=== PATIENT | female | born 1985 | race Caucasian/White ===

== ENCOUNTER 2018-09-18 17:21 | Emergency (ER) | payer MEDICAID ==
[~2018-09-18] VITALS: Ht 167.6 cm; Wt 83.1 kg
[~2018-09-18 17:21] MED LIST: FERR27TA PO; PREN1TAB49 PO
[2018-09-18 17:28] VITALS: Ht 167.6 cm; Wt 83.1 kg
[2018-09-18] MEDS ORDERED: ACET500C5 PO (21:57)
--- NOTE | 2018-09-18 22:07 | ERD ---
ER Documentation Chief Complaint Chief Complaint Complains of vag bleed and 2 months HPI 32-year-old female who is approximately 2 months is complaining of light vaginal spotting times 4 days. Patient states that she only notices the blood when wiping after bathroom. Patient also reports lower back pain. Patien t and states that they continue to engage sexual intercourse. Denies fever or chills. Denies dysuria. Denies pelvic pain. Patient is , LMP 07/11/2018. ROS All systems reviewed and are negative except as per history of present illness. Medications Home Meds Active Scripts Acetaminophen* (Tylophen*) 500 Mg Capsule, 1 CAP PO Q6H PRN for PAIN AND OR ELEVATED TEMP, #20 CAP Prov:IRLANDA RIZVI JACKER 09/18/18 Reported Medications Ferrous Sulfate (Iron) 1 Tab Tablet, 1 TAB PO 10/14/11 Vits W-Ca,Fe,Fa(<1MG) () 1 Tab Tablet, 1 TAB PO 10/14/11 Allergies Allergies: Coded Allergies: No Known Drug Allergy (Verified Allergy, Unknown, 05/24/09) PMhx/Soc History of Surgery: No Anesthesia Reaction: No Hx Neurological Disorder: No Hx Respiratory Disorders: No Hx Cardiac Disorders: No Hx Psychiatric Problems: No Hx Miscellaneous Medical Probl: No Hx Alcohol Use: No Hx Substance Use: No Hx Tobacco Use: No Smoking Status: Never smoker Physical Exam Vitals Vital Signs Date Temp Pulse Resp B/P (MAP) Pulse Ox O2 O2 Flow FiO2 Time Delivery Rate 09/18/18 100.1 84 20 132/75 97 17:28 (94) Physical Exam General: Well-developed, well-nourished, conscious and coherent, in no distress Skin: Warm and dry without rash, good texture and turgor Head: Normocephalic without evidence of trauma Chest: Normal AP diameter. Good expansion without retractions. Nontender. Lungs are clear to auscultate bilaterally with good tidal volume Heart: Regular rate and rhythm. No murmur, rub, or gallops heard Abdomen: Soft and nontender without masses, guarding, or rebound. Bowel sounds are active. No hepatosplenomegaly Back: Without spinal or CVA tenderness Pelvis: Nontender to palpation and stable to compression Extremities: Full range of motion. Good strength bilaterally. No erythema, ecchymosis, or edema. Peripheral pulses are intact. Sensation intact Neuro: Alert and oriented 4, GCS 15. Result Diagram: 09/18/182014 Results 24 hrs Laboratory Tests Test 09/18/18 20:15 09/18/18 20:19 09/18/18 20:20 White Blood Count 13.9 10^3/ul Red Blood Count 4.61 10^6/ul Hemoglobin 12.9 g/dl Hematocrit 40.3 % Mean Corpuscular Volume 87.4 fl Mean Corpuscular Hemoglobin 28.0 pg Mean Corpuscular 32.0 g/dl Hemoglobin Concent Red Cell Distribution Width 12.8 % Platelet Count 264 10^3/UL Mean Platelet Volume 10.7 fl Immature Granulocytes % 0.200 % Neutrophils % 49.0 % Lymphocytes % 32.8 % Monocytes % 5.1 % Eosinophils % 12.3 % Basophils % 0.6 % Nucleated Red Blood Cells % 0.0 /100WBC Immature Granulocytes # 0.030 10^3/ul Neutrophils # 6.8 10^3/ul Lymphocytes # 4.6 10^3/ul Monocytes # 0.7 10^3/ul Eosinophils # 1.7 10^3/ul Basophils # 0.1 10^3/ul Nucleated Red Blood Cells # 0.0 10^3/ul Beta HCG, Quantitative 01415.0 mIU/ml Bedside Urine pH (LAB) 6.0 Bedside Urine Protein (LAB) Negative Bedside Urine Glucose (UA) Negative Bedside Urine Ketones (LAB) Negative Bedside Urine Blood 2+ Bedside Urine Nitrite (LAB) Negative Bedside Urine Leukocyte Esterase 1+ (L POC Beta HCG, Qualitative POSITIVE PROCEDURE: US OB. CLINICAL INDICATION: Vaginal bleeding. TECHNIQUE: Transabdominal and transvaginal sonographic evaluation of the uterus was performed. COMPARISON: None. FINDINGS: There is a single living intrauterine gestation containing yolk sac and pole. Mean sac diameter measures 23.5 mm. [place] rump length measures 10.3 mm. Estimated gestational age based on this examination is 7 weeks and 1 day. Real time examination shows cardiac activity. heart rate is 148 beats per minute. Estimated date of confinement based on this examination is 05/06/2019. Right ovary measures 3.4 x 2.2 x 1.8 cm. There is a 2 cm right ovarian corpus luteal cyst. Left ovary was not visualized. There is no free pelvic fluid. IMPRESSION: 1. Single living intrauterine gestation with estimated gestational age of 7 weeks and 1 day. RPTAT:HAJM Physician [place] Date Time Electronically viewed and signed by Effie Scott Physician on 09/18/2018 21:17 RM/ CC: IRLANDA RIZVI JACKER Procedures/MDM ED course: CBC: No evidence of severe anemia or infection. Beta hC.0 UA: No evidence of urinary tract infection. Blood type: O+. RhoGAM is not indicated for patient. OB ultrasound: Single live intrauterine gestation with estimated gestational age of 7 weeks and 1 day, heart rate is 148 bpm. Medical decision-making: Well-appearing 32-year-old female present ED with slight vaginal spotting. Pat ient reports continued sexual intercourse, I suspect that that may be the cause of the spotting. A single live intrauterine gestation is noted on ultrasound, low suspicion for heterotopic . I have low suspicion for threatened , however cannot completely rule that out at this time. Patient advised to follow-up with her OB in 2 days for repeat beta hCG quant. Patient states that she does have a follow-up appointment with OB in 2 days for ultrasound. Spontaneous and ectopic instructions and return precautions provided. Medications on discharge: Tylenol. Follow-up: Primary care provider in 2 days or return to ED if worse. Departure Diagnosis: Primary Impression: Vaginal bleeding in patient at less than 20 weeks ges... Condition: Stable Patient Instructions: Bleeding During Early Referrals: [facility] [place] [address] [facility] [address] [place] [id number] OFFICE FAX CELINA KEYS [address] [place] [address] [address] [address] [address] BALTAZAR, HESHMAT [address] [facility], [address], [place] [address] DR CALDERON, [facility] [address] [facility], [place] [address] [facility] [address] [place] [address] [facility], [facility] [address] - DR GUAN, DYLAN [address], [place] [address] DR HERRERA, NANCY [address] [facility]. [address], [place] [address] DR DELGADO, FARID [address], [place] [id number] Additional Instructions: Llame al doctor MAANA y lynn paula CHARISMA PARA DENTRO DE 2-3 JORGE.Dgale a la secretaria que nosotros le instruimos hacer esta charisma.Avise o llame si vasquez condicin se empeora antes de la charisma. Regresa aqui si peor o no mejor. IRLANDA RIZVI NP Sep 18, 2018 22:07
[2018-09-18 22:10] VITALS: BP 121/70; PULSE 78; RESP 14
== END 2018-09-18 22:12 | disposition home or self-care (01) ==
LOC: FTE 17:21
DX: O20.9 Hemorrhage in early pregnancy, unspecified (principal); R40.2412 Glasgow coma scale score 13-15, at arrival to emergency department; Z3A.01 Less than 8 weeks gestation of pregnancy
CPT/HCPCS: 36415; 76801; 81003; 81025; 84702; 85025; 86900; 86901; Z7502

== ENCOUNTER 2019-01-31 06:37 | Emergency (ER) | payer MEDICAID ==
[~2019-01-31] VITALS: Ht 160 cm; Wt 83.7 kg
[~2019-01-31 06:37] MED LIST changes: +ACET500C5 PO
[2019-01-31 06:43] VITALS: BP 120/78; PULSE 121; RESP 18; Ht 160 cm; Wt 83.7 kg
[2019-01-31] MEDS ORDERED: AMOX500C2 PO (06:59)
--- NOTE | 2019-01-31 07:54 | ERD ---
ER Documentation Chief Complaint Chief Complaint fever,cold symptoms,sore throat X3 days,26 wks & 5 days HPI 33-year-old female presenting with sore throat and cold symptoms for 3 days. Patient has had tactile fevers but not taken temperature with a thermometer. Patient does not take medications. She is mild runny nose and sore throat and dry cough. No ear pain. Patient is approximately 25 weeks with no complication. Denies medical problems. NKDA. Surgical history denies. Up-to-date on vaccinations. Social history denies ROS All systems reviewed and are negative except as per history of present illness. Medications Home Meds Active Scripts Amoxicillin* (Amoxicillin*) 500 Mg Cap, 500 MG PO BID for 7 Days, CAP Prov:ANGELICA DOWD PA-C 01/31/19 Acetaminophen* (Tylophen*) 500 Mg Capsule, 1 CAP PO Q6H PRN for PAIN AND OR ELEVATED TEMP, #20 CAP Prov:IRLANDA RIZVI BIOMASS TECHNICIAN 09/18/18 Reported Medications Ferrous Sulfate (Iron) 1 Tab Tablet, 1 TAB PO 10/14/11 Vits W-Ca,Fe,Fa(<1MG) () 1 Tab Tablet, 1 TAB PO 10/14/11 Allergies Allergies: Coded Allergies: No Known Drug Allergy (Verified Allergy, Unknown, 05/24/09) PMhx/Soc History of Surgery: No Anesthesia Reaction: No Hx Neurological Disorder: No Hx Respiratory Disorders: No Hx Cardiac Disorders: No Hx Psychiatric Problems: No Hx Miscellaneous Medical Probl: No Hx Alcohol Use: No Hx Substance Use: No Hx Tobacco Use: No Smoking Status: Never smoker FmHx Family History: No diabetes, No coronary disease, No other Physical Exam Vitals Vital Signs Date Temp Pulse Resp B/P (MAP) Pulse Ox O2 O2 Flow FiO2 Time Delivery Rate 01/31/19 98.9 121 18 120/78 95 06:43 (92) Physical Exam GENERAL: The patient is well-appearing, well-nourished, in no acute distress HEENT: Atraumatic. Conjunctivae are pink. Pupils equal, round, and reactive to light. There is no scleral icterus. Tympanic membranes clear bilaterally. Oropharynx clear. NECK: C-spine is soft and supple. There is no meningismus. There is no cervical lymphadenopathy. CHEST: Clear to auscultation bilaterally. There are no rales, wheezes or rhonchi. HEART: Regular rate and rhythm. No murmurs, clicks, rubs or gallops. Procedures/MDM MDM: 33-year-old female presenting with cough. Patient symptoms are likely viral. Patient is discharged with antibiotics but recommended to repeat in 3-4 more days before taking antibiotics. Patient is only told to take antibiotics if symptoms persist. Patient is told symptoms change or worsen to return immediately to the ER. All questions answered at discharge Departure Diagnosis: Primary Impression: Upper respiratory infection Condition: Stable Patient Instructions: Uri, Viral, No Abx (Adult) Referrals: [facility], [facility]1983 CLINICS YOU HAVE RECEIVED A MEDICAL SCREENING EXAM AND THE RESULTS INDICATE THAT YOU DO NOT HAVE A CONDITION THAT REQUIRES URGENT TREATMENT IN THE EMERGENCY DEPARTMENT. FURTHER EVALUATION AND TREATMENT OF YOUR CONDITION CAN WAIT UNTIL YOU ARE SEEN IN YOUR DOCTORS OFFICE WITHIN THE NEXT 1-2 DAYS. IT IS YOUR RESPONSIBILITY TO MAKE AN APPOINTMENT FOR FOLOW-UP CARE. IF YOU HAVE A PRIMARY DOCTOR --you should call your primary doctor and schedule an appointment IF YOU DO NOT HAVE A PRIMARY DOCTOR YOU CAN CALL OUR PHYSICIAN REFERRAL HOTLINE AT IF YOU CAN NOT AFFORD TO SEE A PHYSICIAN YOU CAN CHOSE FROM THE FOLLOWING [facility] CLINICS [facility] [address] [facility]. [facility] [address] [facility] [address] [facility] [address] [facility]. [facility] [address] [facility]. [facility]. [address] Additional Instructions: FOLLOW UP WITH YOUR PRIMARY CARE PHYSICIAN TOMORROW.Return to this facility if you are not improving as expected. ANGELICA DOWD PA-C Jan 31, 2019 07:54
== END 2019-01-31 07:50 | disposition home or self-care (01) ==
LOC: FTE 06:37
DX: J06.9 Acute upper respiratory infection, unspecified (principal)

== ENCOUNTER 2019-01-31 08:04 | Outpatient (CLI) | payer MEDICAID ==
[~2019-01-31] VITALS: Ht 160 cm; Wt 83.8 kg
[~2019-01-31 08:04] MED LIST changes: +AMOX500C2 PO
[2019-01-31 08:19] VITALS: Ht 160 cm; Wt 83.8 kg
[2019-01-31 08:20] VITALS: BP 110/72; PULSE 111; RESP 18
--- NOTE | 2019-01-31 09:08 | TRIAGE ---
OB Triage Datetime Report Generated by CPN: 01/31/2019 09:08 Datetime: 01/31/2019 08:41 Stage of : OB Triage Maternal Assessment Level of Consciousness: Keenly Alert, Responsive Labor Evaluation Frequency: NONE Monitor Mode: External Resting Tone [place]: Relaxed Heart Rate FHR Baseline Rate: 145 Monitor Mode: External US Variability: Moderate 6-25 bpm Accelerations: 15X15 Decelerations: None Category: Category I Pain Assessment Pain Scale: 0 Pain Goal: 3 Vaginal Exam Membrane Status: Intact Vaginal Bleeding: None Datetime: 01/31/2019 08:15 Assessment Type: Triage Maternal Assessment Level of Consciousness: Keenly Alert, Responsive DTR's/Clonus: DTRs 2+; No Clonus Headache: Denies Blurred Vision: No Respiratory Effort: Unlabored; Regular Rhythm; Equal Expansion Breath Sounds, Left: Clear and Equal Breath Sounds, Right: Clear and Equal Nausea/Vomiting: Denies RUQ Epigastric Pain: Denies Lower Extremities Edema: None Degree: None Upper Extremities Edema: None Degree: None Facial Edema: None Fall Risk Assessment History of Falling: (0) No Secondary Diagnosis: (0) No Ambulatory Aid: (0) Bedrest/Nurse Assist IV Therapy: (0) No Gait: (0) Normal/Bedrest/Immobile Mental Status: (0) Oriented to Own Ability Fall Score: 0 Fall Risk Score Definition: No Risk: No action required Datetime: 01/31/2019 08:14 Time of Arrival: 01/31/2019 08:00 EGA: 27.0 Arrived By: Ambulatory Arrived From: Emergency Dept Chief Complaint: PT. SENT FROM ED TO BE CLEARED OB GREGORY, SEEN AND TREATED FOR C/O COLD. Movement: Present Contractions: Denies/Absent Rupture of Membranes: Denies Vaginal Bleeding: None Vaginal Discharge: Denies Recent Sexual Intercouse: Denies Abdominal Trauma: Not Applicable Patient Complaints: None Time Provider Notified: 01/31/2019 08:30 Provider Notified: HADADIAN Initial Plan: NST/MILTON Datetime: 01/31/2019 08:11 Monitor Mode: External Monitor Mode: External US
--- NOTE | 2019-01-31 09:44 | PN ---
Triage Information Date/Time Reason for visit: She presented to emergency department with cold symptoms, she was evaluated and then transferred to labor and delivery for well-being Weeks of Gestation 27 weeks /Para -1-0-5 Diabetes: none Hypertention: none Objective Vital Signs Date Temp Pulse Resp B/P (MAP) Pulse Ox O2 O2 Flow FiO2 Time Delivery Rate 01/31/19 98.3 111 18 110/72 Room Air 08:20 (85) Contractions: None Disposition: Discharge Assessment/Plan 33 years old 7 para 5-1-0-5 with single intrauterine at 27 weeks with a VIDAL of 05/02/2019 presented to emergency department with cold s ymptoms. She was evaluated and then transferred to labor and delivery for well-being. She states good movement. She denies nausea, vomiting, shortness of breath, chest pain, headache, visual changes, vaginal bleeding or LOF. -FHR: No sign of metabolic acidosis- Category I -Contractions: None -Ultrasound performed: Normal [place] -Symptoms and sign of labor, preeclampsia, kick count discussed with patient, she voiced understanding. All of her questions answered. -Patient was discharged home in stable condition with the appropriate discharge instructions provided. I would like patient to have close follow-up with her primary physician or outpatient clinic in 1-2 days or return to triage for worsening symptoms or any other urgent concerns. SHAYE MACK Jan 31, 2019 09:44
== END 2019-01-31 08:50 | disposition home or self-care (01) ==
LOC: OBT 08:04 → L-D 08:07 → OBT 08:50
PROVIDERS: ATTEND Obstetrics & Gynecology
DX: O26.892 Other specified pregnancy related conditions, second trimester (principal); J00 Acute nasopharyngitis [common cold]; Z3A.27 27 weeks gestation of pregnancy
CPT/HCPCS: 76815; Z7500; G0463

== ENCOUNTER 2019-04-17 11:24 | Inpatient (IN) | payer MEDICAID ==
[2019-04-17] VITALS (8 sets, daily range): BP systolic 110–130; BP diastolic 52–73; PULSE 84–88; RESP 17–19; Ht 157.5 cm; Wt 89.7 kg
[~2019-04-17] VITALS: Ht 157.5 cm; Wt 89.7 kg
[2019-04-17] MEDS ORDERED: LACTATED RINGER'S 1,000 ML IV SCH (13:15)
[2019-04-17] MEDS ORDERED: CEFAZOLIN 2 GM/50 ML (PMX) 50 ML IVPB SCH (13:30)
[2019-04-17] MEDS ORDERED: MISOPROSTOL 200 MCG TAB PR PRN ×2 (13:30→22:30)
[2019-04-17] MEDS ORDERED: METHYLERGONOVINE 0.2 MG INJ IM PRN ×2 (13:30→22:30)
[2019-04-17] MEDS ORDERED: CARBOPROST 250 MCG INJ IM PRN ×2 (13:30→22:30)
[2019-04-17] MEDS ORDERED: OXYTOCIN 30 UNITS/LR 500 ML IV SCH ×2 (13:30→22:08)
[2019-04-17] MEDS ORDERED: OXYTOCIN 30 UNITS/LR 500 ML IV PRN ×2 (13:30→22:30)
[2019-04-17] MEDS ORDERED: MIDAZOLAM 1 MG/ML 2 ML INJ ONE (18:13)
[2019-04-17] MEDS ORDERED: FENTAnyl 50 MCG/ML VIAL ONE (18:13)
[2019-04-17] MEDS ORDERED: morphine SULFATE/PF (10 MG/10 ML) INJ ONE (18:13)
[2019-04-17] MEDS ORDERED: PHENYLephrine (100 MCG/ML) 10ML SYG ONE (18:13)
[2019-04-17] MEDS ORDERED: DIPHENHYDRAMINE 50 MG INJ ONE (18:24)
[2019-04-17] MEDS ORDERED: FAMOTIDINE 20 MG INJ ONE (18:24)
[2019-04-17] MEDS ORDERED: DEXAMETHASONE 4 MG/ML 1 ML INJ ONE (18:24)
[2019-04-17] MEDS ORDERED: ONDANSETRON 4 MG INJ ONE (18:24)
[2019-04-17] MEDS ORDERED: OXYTOCIN 30 UNITS/LR 500 ML IV ONE (18:26)
[2019-04-17] MEDS ORDERED: LIDOCAINE 1% (MDV) 20 ML INJ ONE (18:29)
[2019-04-17] MEDS ORDERED: PROPOFOL 20 ML ONE (18:29)
[2019-04-17] MEDS ORDERED: NALOXONE (0.4 MG/ML) INJ IV PRN (19:00)
[2019-04-17] MEDS ORDERED: DIPHENHYDRAMINE 50 MG INJ IV PRN (19:00)
[2019-04-17] MEDS ORDERED: ZOLPIDEM 5 MG TAB PO PRN (19:00)
[2019-04-17] MEDS ORDERED: ONDANSETRON 4 MG INJ IV PRN (19:00)
[2019-04-17] MEDS ORDERED: HYDROmorphONE 0.5 MG/0.5 ML SYG IV PRN ×2 (19:00)
[2019-04-17] MEDS: DEXTROSE 5%-LR 1,000 ML IV SCH (22:08)
[2019-04-17] MEDS ORDERED: MAGNESIUM HYDROXIDE 30ML CUP PO PRN (22:30)
[2019-04-17] MEDS ORDERED: LANOLIN HPA 1 PKT TOP PRN (22:30)
[2019-04-17] MEDS ORDERED: METHYLERGONOVINE 0.2 MG TAB PO PRN (22:30)
[2019-04-17] MEDS ORDERED: ACETAMINOPHEN 500 MG TAB PO PRN (22:30)
[2019-04-18] VITALS (7 sets, daily range): BP systolic 100–136; BP diastolic 58–65; PULSE 83–108; RESP 18
[2019-04-18] MEDS: SENNA/DOCUSATE NA (8.6MG/50MG) TAB PO SCH ×2 (08:40→21:55)
[2019-04-18] MEDS: DEXTROSE 5%-LR 1,000 ML IV SCH ×3 (08:51→22:08)
[2019-04-18] MEDS ORDERED: DIPHTH/TET/ACEL PERTUSS (ADULT) 0.5 ML VIAL IM* ONE (11:00)
[2019-04-18] MEDS ORDERED: HYDROCODONE/APAP (5/325) TAB PO PRN (11:00)
[2019-04-18] MEDS: KETOROLAC 30 MG INJ IV PRN ×2 (12:16→18:14)
[2019-04-18] MEDS: IBUPROFEN 800 MG TAB PO SCH (21:54)
[2019-04-18] MEDS: HYDROCODONE/APAP (5/325) TAB PO SCH (21:54)
[2019-04-19 03:06] VITALS: BP 109/55; PULSE 78; RESP 18
[2019-04-19] MEDS: DEXTROSE 5%-LR 1,000 ML IV SCH ×3 (06:08→22:08)
[2019-04-19] MEDS: HYDROCODONE/APAP (5/325) TAB PO SCH ×3 (06:10→22:18)
[2019-04-19] MEDS: IBUPROFEN 800 MG TAB PO SCH ×3 (06:10→22:18)
[2019-04-19 07:30] VITALS: BP 118/72; PULSE 92; RESP 19
[2019-04-19] MEDS: MAGNESIUM HYDROXIDE 30ML CUP PO SCH ×2 (09:18→21:00)
[2019-04-19] MEDS: SENNA/DOCUSATE NA (8.6MG/50MG) TAB PO SCH ×2 (09:18→21:00)
[2019-04-19 16:15] VITALS: BP 124/82; PULSE 95; RESP 18
[2019-04-19 19:25] VITALS: BP 110/75; PULSE 95; RESP 18
[2019-04-20] MEDS: IBUPROFEN 800 MG TAB PO SCH ×2 (05:46→14:14)
[2019-04-20] MEDS: HYDROCODONE/APAP (5/325) TAB PO SCH ×2 (05:46→14:15)
[2019-04-20 08:00] VITALS: BP 97/53; PULSE 77; RESP 18
[2019-04-20] MEDS ORDERED: DIPHTH/TET/ACEL PERTUSS (ADULT) 0.5 ML VIAL IM* ONE (09:00)
[2019-04-20] MEDS ORDERED: MEASLES,MUMPS,RUBELLA VACCINE INJ SC* ONE (09:00)
[2019-04-20] MEDS: MAGNESIUM HYDROXIDE 30ML CUP PO SCH (10:28)
[2019-04-20] MEDS: SENNA/DOCUSATE NA (8.6MG/50MG) TAB PO SCH (10:28)
== END 2019-04-20 18:21 | disposition home or self-care (01) | DRG 784 ==
LOC: OBT 11:24 → L-D 11:25 → OBT 12:50 → L-D 16:47 → PP1 21:48
PROVIDERS: ADMIT Obstetrics & Gynecology; ATTEND Obstetrics & Gynecology
PROC: 10D00Z1 Extraction of Products of Conception, Low, Open Approach (ICD-10-PCS; principal; 2019-04-17)
PROC: 0UB70ZZ Excision of Bilateral Fallopian Tubes, Open Approach (ICD-10-PCS; 2019-04-17)
DX: O32.8XX0 Maternal care for other malpresentation of fetus, not applicable or unspecified (principal); O41.03X0 Oligohydramnios, third trimester, not applicable or unspecified; Z3A.37 37 weeks gestation of pregnancy; Z37.0 Single live birth; Z30.2 Encounter for sterilization
CPT/HCPCS: 62322; 76818; 85025; 85610; 85730; 86592; 86850; 86900; 86901; 87340; 88302; 99464; G0463; J0690; J1100; J1200; J1885; J2250; J2274; J2370; J2405; J2590; J3010; J7120; J7121